=== PATIENT | male | born 1950 | race Caucasian/White ===

== ENCOUNTER 2017-01-11 10:58 | Inpatient (IN) | payer BC, MEDICARE ==
[2017-01-04 15:31] LABS: BASOPHILS 0.3 %; BASOPHILS ABSOLUTE 0.02 10/3/uL (0.0-0.16); EOSINOPHILS 1.6 %; EOSINOPHILS ABSOLUTE 0.12 10/3/uL (0.0-0.53); HEMATOCRIT 40.6 % (40.0-51.0); HEMOGLOBIN 13.8 g/dL (13.6-17.8); IMMATURE GRANULOCYTES 0.5 %; IMMATURE GRANULOCYTES ABSOLUTE 0.04 10/3/uL (0.0-0.11); LYMPHOCYTES 20.2 %; LYMPHOCYTES ABSOLUTE 1.47 10/3/uL (0.67-4.30); MEAN CORPUSCULAR HEMOGLOB 32.2 pg (26.0-34.0); MEAN CORPUSCULAR VOLUME 94.9 fL (80-100); MEAN PLATELET VOLUME 10.5 fL (9.2-13.0); MONOCYTES 8.4 %; MONOCYTES ABSOLUTE 0.61 10/3/uL (0.21-1.20); NEUTROPHILS ABSOLUTE 5.02 10/3/uL (2.02-8.40); RBC DISTRIBUTION WIDTH 13.5 % (12.0-16.0); RED CELL COUNT 4.28 10/6/uL (4.7-6.1)
[2017-01-04 15:39] LABS: MANUAL DIFF NO %; PLATELET COUNT 189 10/3/uL (150-400); WHITE BLOOD CELLS 7.3 10/3/uL (4.5-10.5)
[2017-01-04 15:41] LABS: INTERNATIONAL NORMAL RATI 1.1 UNITS (-); PARTIAL THROMBO TIME 26.5 SEC (22.5-37.2); PROTIME (NOT ORD) 13.9 SEC (12.0-14.5)
[2017-01-04 15:48] LABS: ALBUMIN 3.7 G/DL (3.5-5.0); CHLORIDE, SERUM 98 MMOL/L (96-112); CREATININE 1.28 MG/DL (0.70-1.30); GFR AFRICAN AMERICAN 67 ML/MIN (>=60); GFR NON AFRICAN AMERICAN 58 ML/MIN (>=60); GLOBULIN 3.6 G/DL (2.5-4.1); SGOT(AST) 18 U/L (5-40); SGPT(ALT) 31 U/L (5-65); SODIUM, SERUM 135 MMOL/L (135-148); TOTAL BILIRUBIN 0.3 MG/DL (0-1.2); TOTAL PROTEIN 7.3 G/DL (6.0-8.5)
[2017-01-04 15:49] LABS: ALKALINE PHOSPHATASE 69 U/L (45-117); BUN (BLOOD UREA NITROGEN) 27 MG/DL (6-23); CALCIUM, SERUM 10.1 MG/DL (8.5-10.4); CO2 (CARBON DIOXIDE) 31 MMOL/L (24-34); GLUCOSE, SERUM 363 MG/DL (60-99); POTASSIUM, SERUM 4.6 MMOL/L (3.5-5.3)
[2017-01-04 17:12] LABS: ASCORBIC ACID (UR NOT ORDER) NEG (NEG); BILIRUBIN, URINE NEGATIVE (NEG); KETONE, URINE NEGATIVE (NEG); LEUKOCYTE ESTERASE(NOT OR NEG (NEG); WBC (NOT ORDERED) (RFLEX) 1 (0-5)
--- NOTE | ~2017-01-11 | HP ---
History And Physical [address] [address] NAME: NICHELLE [place] : 48 STATUS : ADM [facility]#: [id number] AGE: 67 ADM/REG DATE : 01/11/17 MR#: [id number] REPORT SERV DATE: 01/12/17 DICTATED BY: JESSE DURAN III DATE: 01/11/17 REPORT STATUS : Draft TRANSCRIBED BY: JOJO DATE: 01/11/17 DATE OF ADMISSION: 01/11/2017 CHIEF COMPLAINT: Right knee pain. HISTORY: The patient is a 67-year-old white male who complains of pain in his right knee and has so for the past two years. He complains of rest pain, night pain, all unrelieved with nonsteroidal antiinflammatory medicines. X-rays reveal severe advanced osteoarthritis of his right knee and he is admitted for a right total knee arthroplasty. Risks, benefits, and expected outcomes have been explained, but not limited to blood clots, infection, neurovascular injuries, patella maltracking problems, and component failures. PAST MEDICAL HISTORY: Significant for noninsulin-dependent diabetes mellitus and high blood pressure. Otherwise, he denies any liver, lung, or kidney problems. PREVIOUS SURGERIES: Include colonoscopy. MEDICATIONS: Include Byetta, Diovan, hydrocodone, metformin, simvastatin. ALLERGIES: NONE. SOCIAL HISTORY: Nondrinker and nonsmoker. PHYSICAL EXAMINATION: GENERAL: He is alert and oriented x3. VITAL SIGNS: Stable. HEENT: Normocephalic, atraumatic. Pupils equal, round, and reactive to light and accommodation. Extraocular muscles are intact. NECK: Supple. CHEST: Clear. HEART: Regular rate and rhythm. ABDOMEN: Benign, soft, nontender. Positive bowel sounds. ORTHOPEDIC EXAMINATION: Reveals a 6 feet, 300 pounds. He has varus alignment about 8 to 10 degrees, 2+ valgus stress, 1+ varus stress. No effusion. No erythema. No warmth. Tenderness to the patellofemoral joint. Range of motion -10 to 120 tender to the medial femoral condyle and medial joint line. Crepitation through range of motion. IMAGING: X-rays reveal advanced osteoarthritis of his right knee with [id number] deformity in medial compartment. PLANS: Admission for right total knee arthroplasty. TB/JOJO History And Physical [address] [place]. [address] NAME: NICHELLE [place] : 48 STATUS : ADM IN PAT#: [id number] AGE: 67 ADM/REG DATE : 01/11/17 MR#: [id number] REPORT SERV DATE: 01/12/17 DICTATED BY: JESSE DURAN III DATE: 01/11/17 REPORT STATUS : Draft TRANSCRIBED BY: MODL DATE: 01/11/17 Jesse Duran III, M.D. / [id number] CC: Jeremy Espinal III, M.D.
--- NOTE | ~2017-01-11 | DS ---
Discharge Summary [facility] [address] [place]. [address] NAME: NICHELLE [place] : 48 STATUS : DIS IN PAT#: [id number] AGE: 67 ADM/REG DATE : 01/11/17 MR#: [id number] REPORT SERV DATE: 01/28/17 DICTATED BY: JESSE DURAN III DATE: 01/27/17 REPORT STATUS : Draft TRANSCRIBED BY: JOJO DATE: 01/27/17 Data Collection from hospitalization DISCHARGE DIAGNOSES: 1. Advanced osteoarthritis of the right knee. 2. Uqp-ryzbyij-vgnvcijha diabetes mellitus. 3. Hypertension. CONSULTATIONS: None. PROCEDURES PERFORMED: Right total knee arthroplasty using [employer] System with size 8 femoral component, size 8 tibial tray, +8 polyethylene insert, and 38 mm patella, 01/11/2017. PATHOLOGY: Bone and soft tissue, right knee joint arthroplasty - degenerative joint disease. MEDICATIONS: Eliquis 2.5 mg twice a day, Byetta 10 mcg subcutaneously twice a day, Dilaudid 4 mg every six hours as needed, Levemir FlexPen 32 units subcutaneously at bedtime, Tradjenta 5 mg daily, Glucophage 1000 mg twice a day before meals, multivitamins one tablet daily, Zocor 20 mg at bedtime, Detrol LA 2 mg daily, Ultram 50 mg every six hours as needed, Garcinia as instructed, Diovan 150 mg daily. CONDITION AT DISCHARGE: Stable. DISPOSITION: The patient was discharged home on an 1800-calorie diabetic diet with activities as instructed. He would follow up with [facility] 01/27/2017. He would follow up at [facility], 01/15/2017. HOSPITAL COURSE: This is a 67-year-old man who had complained of pain in the right knee over the past two years. He complained of rest pain and night pain, all unrelieved with nonsteroidal anti-inflammatory medications. X-rays had revealed severe advanced osteoarthritis of the right knee. Treatment options were discussed and it was elected to proceed with surgical intervention. He was admitted to the hospital at this time for further evaluation and treatment. Upon admission, he was taken to the operating room where he underwent the above-mentioned procedure. He tolerated this well, and there were no complications. On postop day #1, he was evaluated by Occupational Therapy. He was afebrile, he was doing well. He was ambulating in the flores. He was allowed to weight bear as tolerated. On postop day #2, he still complained of some pain. He continued to ambulate. Discharge planning was performed. He underwent diabetes education. On 01/14/2017, he continued to do well. Discharge instructions were given. Due to his improved and stable condition, he was discharged home with the above-stated instructions. Information collected by: Claribel Salcido I submit the above information as my discharge summary. Discharge Summary [address] [address] NAME: NICHELLE [place] : 48 STATUS : DIS IN PAT#: [id number] AGE: 67 ADM/REG DATE : 01/11/17 MR#: [id number] REPORT SERV DATE: 01/28/17 DICTATED BY: JESSE DURAN III DATE: 01/27/17 REPORT STATUS : Draft TRANSCRIBED BY: JOJO DATE: 01/27/17 TG/JOJO Jesse Duran III, M.D. / [id number] CC: Jeremy Espinal III, M.D.
--- NOTE | ~2017-01-11 | OP ---
Record Of Operation [facility] [address] [place]. [address] NAME: NICHELLE [place] : 48 STATUS : ADM IN PAT#: [id number] AGE: 67 ADM/REG DATE : 01/11/17 MR#: [id number] REPORT SERV DATE: 01/12/17 DICTATED BY: JESSE DURAN III DATE: 01/11/17 REPORT STATUS : Draft TRANSCRIBED BY: MODL DATE: 01/11/17 DATE OF PROCEDURE: 01/11/2017 PREOPERATIVE DIAGNOSIS: Advanced osteoarthritis right knee. POSTOPERATIVE DIAGNOSIS: Advanced osteoarthritis right knee. SURGICAL PROCEDURE PERFORMED: Right total knee arthroplasty using [employer]une System with size 8 femoral component, size 8 tibial tray, +8 polyethylene insert, and a 38 mm patella. SURGEON: Jesse Duran M.D. UNDERWRITING SPECIALIST: Marciano Mendez. ANESTHESIA: General. ANTIBIOTICS: Ancef 2 g. COMPLICATIONS: None. CRYSTALLOID: 750 mL. ESTIMATED BLOOD LOSS: 150 mL. TOURNIQUET TIME: 44 minutes. DRAINS: ConstaVac x1. PROCEDURE IN DETAIL: The patient was brought to the operative room, placed on the table in supine position and general anesthesia was induced, also had 2 g of tranexamic acid. The patient was brought to the operative room, placed on the table in supine position and general anesthesia was induced. Two g of Ancef was administered intravenously in the operating room. Pneumonic tourniquet was applied to right upper thigh. Right lower extremity was prepped and draped in the usual sterile fashion. Exsanguinated with a 6-inch Esmarch. Tourniquet was inflated to 350 mmHg. Assuring good anesthesia and called surgical time-out by the circulating nurse, a midline incision was made directly over the right knee followed by medial arthrotomy. The patella was everted. The knee was flexed to 90 degrees. Medial lateral menisci were debrided along the anterior cruciate ligament. A 5 mm step drill was used to enter the femoral canal and intramedullary guide was placed on 5 degrees valgus for right knee. This was pinned to distal femur and the intramedullary guide was removed. Distal femoral cut was made removing 10 mm of distal femur. Distal femur was trialed to a size 8 femoral component, marked along the epicondylar axis. Multi-cutting guide was placed in these benjamin, pinned to the distal femur and the anterior posterior cuts were made along with the angled chamfer cuts. The intercondylar cutting guide was next centered and pinned to the distal femur. A reciprocating saw was used to make this cut for the posterior stabilized system. Trial reduction was carried out noting good cuts in all Record Of Operation [facility] [address] [place]. [address] NAME: NICHELLE [place] : 48 STATUS : ADM IN PAT#: [id number] AGE: 67 ADM/REG DATE : 01/11/17 MR#: [id number] REPORT SERV DATE: 01/12/17 DICTATED BY: JESSE DURAN III DATE: 01/11/17 REPORT STATUS : Draft TRANSCRIBED BY: JOJO DATE: 01/11/17 planes. Attention was turned toward the tibial side. The external tibial cutting guide was aligned with the second metatarsal ray and pinned to the proximal tibia. Oscillating saw was used to make this cut with a neutral degree cutting block. Trial reduction was carried out with a size 8 tibial baseplate and a +8 polyethylene insert. Full extension was achieved. Nice flexion to 130 degrees. Flexion and extension gaps were symmetrical. The undersurface of the patella was then resurfaced by transecting 9 to 10 mm of bone. A 38 mm patellar template was used to place three anchor holes in the undersurface of the patella. The tibia was then prepared with a drill and a punch. Two packs of methylmethacrylate were vacuum mixed, pressurized into the good dry cancellous bone. The real components were placed. Excess cement was removed. Tourniquet was released after 44 minutes. Bleeding was controlled with the Bovie electrocautery. Thorough irrigation was carried out throughout the procedure with pulse lavage system. An 80 mL of Marcaine solution was injected into the knee for postoperative pain control. One medium-size ConstaVac drain was placed in the wound. The medial arthrotomy was closed with #2 Ethibond suture, #1 Vicryl suture in 90 degree flexed position. Subcutaneous tissues closed with 2-0 Vicryl and the skin was closed using running 4-0 Monocryl. Benzoin and Steri-Strips were applied, followed by sterile Aquacel dressing. The patient tolerated the procedure well and was brought to recovery in satisfactory condition. There were no intraoperative, postoperative, or anesthetic complications. All instrument, needle, sponge, and lap counts were correct. TB/MODL Jesse Duran III, M.D. / [id number] CC: Jesse Duran III, M.D.
[~2017-01-11 10:58] MED LIST: BYETTA10 SC; DETROLLA2 PO; DIOV160 PO; FLOMAX4 PO; GARCINIA; GLUCCHONDR PO; GLUCOPHAGE1000 MG PO; ISONIAZID PO; KLOR-CON 1010 MEQ PO; L20 PO; LEVEMFLXPN SC; LORTAB 5 PO; MOBIC15 MG PO; MULTIVITAMI1 PO; NABUMETONE750 MG PO; OSTEO BIFLEX PO; PHENADOZ25 MG PR; PROSCAR5 PO; RIFAMPIN PO; TRADJENTA5 MG PO; ULTRAM50 PO; ZOCOR20 PO
[2017-01-13 04:25] LABS: HEMATOCRIT 32.6 % (40.0-51.0); HEMOGLOBIN 10.9 g/dL (13.6-17.8)
[2017-01-14 04:37] LABS: HEMATOCRIT 29.8 % (40.0-51.0); HEMOGLOBIN 10.1 g/dL (13.6-17.8)
[2017-01-14] MEDS ORDERED: DIL4TAB PO (11:59)
[2017-01-14] MEDS ORDERED: ELIQUIS 2.5 MG2.5 MG PO (11:59)
== END 2017-01-14 14:04 | disposition home or self-care (01) | DRG 470 ==
LOC: SDC/OF 10:58 → PACU 16:02 → 3JRC 17:26
PROVIDERS: Orthopaedic Surgery
PROC: 3E0T3CZ (ICD-10-PCS; 2017-01-11)
PROC: 0SRC0J9 Replacement of Right Knee Joint with Synthetic Substitute, Cemented, Open Approach (ICD-10-PCS; principal; 2017-01-11 12:30)
DX: M17.11 Unilateral primary osteoarthritis, right knee (principal); Z68.41 Body mass index [BMI] 40.0-44.9, adult; I10 Essential (primary) hypertension; E11.9 Type 2 diabetes mellitus without complications; Z79.84 Long term (current) use of oral hypoglycemic drugs; Z79.899 Other long term (current) drug therapy; E66.9 Obesity, unspecified; G47.33 Obstructive sleep apnea (adult) (pediatric)
CPT/HCPCS: 36415; 71020; 80053; 81001; 82962; 85014; 85018; 85025; 85610; 85730; 86850; 86900; 86901; 87641; 88305; 88311; 93005; 97110-GP; 97116-GP; 97150-GP; 97161-GP; 97165-GO; 97535-GO; A9270-GY; C1776; J0330; J0690; J1885; J2250; J2270; J2405; J2710; J2795; J3010